=== PATIENT | female | born 1990 | race Caucasian/White ===

== ENCOUNTER 2022-01-26 08:31 | Outpatient (CLI) | payer OTHER, SELFPAY ==
[2022-01-26 14:57] LABS: HCG Quantitative* 252.78 mIU/mL
== END 2022-01-26 08:32 | disposition home or self-care (01) ==
PROVIDERS: PCP Obstetrics & Gynecology; Visit Provider Obstetrics & Gynecology
DX: Z32.01 Encounter for pregnancy test, result positive (principal)
CPT/HCPCS: 36415; 84702

== ENCOUNTER 2022-02-23 08:00 | Outpatient (CLI) | payer OTHER, SELFPAY ==
--- NOTE | 2022-02-23 08:15 | CRLHL7_ITS ---
For Patients: As a result of the Cures Act, medical imaging exams and procedure reports are released immediately into your electronic medical record. You may view this report before your referring provider. If you have questions, please contact your health care provider. INDICATION: Dating and viability. TECHNIQUE: Ultrasound OB pelvis transabdominal and transvaginal. Real-time park-scale imaging of the pelvis was performed. COMPARISON: None. FINDINGS: There is a single intrauterine gestation. The embryo demonstrates a regular cardiac rate measuring 166 beats per minute. The embryo`s crown rump length measurement of 1.87 cm corresponds to a gestational age of 8 weeks 3 days with a sonographic due date of 10/02/2022. There is a normal appearing yolk sac. There are no gross abnormalities noted within the embryo at this early state of development. The placenta has not yet developed. There is no sign of perigestational hemorrhage. The ovaries are of normal size. There are no suspicious fluid collections noted in the cul-de-sac. IMPRESSION: Single viable intrauterine with estimated gestational age of 8 weeks 3 days. Estimated due date 10/02/2022. No abnormalities seen. Dictated by Alan Pierson MD @ 02/23/2022 8:48:01 AM (Electronically Signed)
== END 2022-02-23 08:01 | disposition home or self-care (01) ==
LOC: US 08:00
PROVIDERS: PCP Obstetrics & Gynecology; Visit Provider Registered Nurse
DX: Z34.91 Encounter for supervision of normal pregnancy, unspecified, first trimester (principal); Z3A.08 8 weeks gestation of pregnancy
CPT/HCPCS: 76817

== ENCOUNTER 2022-02-23 09:19 | Outpatient (CLI) | payer OTHER, SELFPAY ==
[2022-02-23 13:08] LABS: Hepatitis B Surface Antigen* Negative (Negative)
[2022-02-23 13:19] LABS: HIV 1/2/P24 Combo Screen* Negative (Negative)
[2022-02-23 13:50] LABS: Chlamydia DNA Amplified* NOT DETECTED (No Detected); GC DNA Amplified* NOT DETECTED (No Detected)
[2022-02-23 14:23] LABS: Hepatitis C Virus Antibody* Negative (Negative)
[2022-02-24 18:30] LABS: Rubella Antibody IgG 13.5 IU/mL
[2022-02-24 19:18] LABS: Rapid Plasma Reagin (RPR) Non Reactive (Non Reactive)
== END 2022-02-23 09:20 | disposition home or self-care (01) ==
PROVIDERS: PCP Obstetrics & Gynecology; Visit Provider Registered Nurse
DX: Z34.91 Encounter for supervision of normal pregnancy, unspecified, first trimester (principal); Z86.39 Personal history of other endocrine, nutritional and metabolic disease
CPT/HCPCS: 84443; 86592; 86703; 86762; 86803; 86850; 86900; 86901; 87086; 87340; 87491; 87591

== ENCOUNTER 2022-03-21 08:26 | Outpatient (CLI) | payer OTHER, SELFPAY ==
--- NOTE | 2022-03-21 08:45 | CRLHL7_ITS ---
For Patients: As a result of the Century Cures Act, medical imaging exams and procedure reports are released immediately into your electronic medical record. You may view this report before your referring provider. If you have questions, please contact your health care provider. CLINICAL HISTORY: First trimester screening. TECHNIQUE: Real time park scale imaging of the fetus was performed using a transabdominal approach. FINDINGS: Sonographic imaging demonstrates a single living intrauterine gestation. The fetus demonstrates a regular cardiac rate measuring 163 beats per minute. The crown rump length measurement of 5.7 cm corresponds to a gestation of 12 weeks 2 days which is concordant with the earlier dating ultrasound. A nuchal translucency measurement of 1.46 mm was obtained for screening purposes. IMPRESSION: Nuchal translucency measurement obtained for first trimester screen. Dictated by Herbert Renteria MD @ 03/21/2022 10:42:37 AM (Electronically Signed)
== END 2022-03-21 08:27 | disposition home or self-care (01) ==
LOC: US 08:27
PROVIDERS: PCP Obstetrics & Gynecology; Visit Provider Registered Nurse
DX: Z34.91 Encounter for supervision of normal pregnancy, unspecified, first trimester (principal); Z3A.12 12 weeks gestation of pregnancy
CPT/HCPCS: 36415; 76801; 76813; 84163; 84702

== ENCOUNTER 2022-05-19 13:45 | Outpatient (CLI) | payer OTHER, SELFPAY ==
--- NOTE | 2022-05-19 14:00 | CRLHL7_ITS ---
For Patients: As a result of the Century Cures Act, medical imaging exams and procedure reports are released immediately into your electronic medical record. You may view this report before your referring provider. If you have questions, please contact your health care provider. INDICATION: Evaluate anatomy. COMPARISON: 03/21/2022 TECHNIQUE: Real time park scale imaging of the fetus was performed as well as color Doppler analysis of the umbilical vessels. FINDINGS: Sonographic imaging demonstrates a single living intrauterine gestation. Fetus demonstrates a regular cardiac rate of 149 beats per minute. Fetus has a vertex position. The placenta lies posteriorly without evidence of placenta previa. The edge of the placenta is located 5.2 cm from the internal cervical os. Amniotic fluid volume appears normal. Single deepest vertical pocket: 3.7 cm. The cervix is closed and measures 4.1 cm in length. The composite ultrasound gestational age is calculated at 20 weeks 2 days with an estimated sonographic due date of 10/04/2022. The estimated weight is 345 grams which lies at the 31st %. The following biometric measurements were obtained: Biparietal diameter: 4.5 cm/19 weeks 5 days 18th% Head circumference: 18.0 cm/20 weeks 3 days 36th% Abdominal circumference: 15.3 cm/20 weeks 3 days 41st% Femur length: 3.2 cm/20 weeks 1 day 26th% The HC/AC ratio measures: 1.18 range (1.07-1.25) On anatomic survey, there is a normal appearance of the cerebral ventricles, cavum septi pellucidi, cisterna magna and cerebellum. The nose, lips, and facial profile appear normal. The cervical, thoracic and lumbar spine are well visualized and appear normal. There is a normal four-chamber heart view and the left and right ventricular outflow tracts appear normal. The diaphragm and stomach appear normal. The kidneys and bladder also appear normal. There is a normal three-vessel cord and cord insertion site. The four extremities appear normal. IMPRESSION: Normal OB ultrasound exam with concordance of clinical and sonographic dating. No intrinsic abnormalities noted on anatomic survey. Dictated by Herbert Renteria MD @ 05/20/2022 10:23:13 AM (Electronically Signed)
== END 2022-05-19 13:46 | disposition home or self-care (01) ==
LOC: US 13:46
PROVIDERS: PCP Obstetrics & Gynecology; Visit Provider Physician Assistant
DX: Z34.92 Encounter for supervision of normal pregnancy, unspecified, second trimester (principal); Z3A.20 20 weeks gestation of pregnancy
CPT/HCPCS: 76805

== ENCOUNTER 2022-07-11 08:14 | Outpatient (CLI) | payer OTHER, SELFPAY ==
--- OUTSIDE RECORDS SUMMARY | 2022-07-11 08:23 | XMS_ITS | Clinical Summary ---
:1990 Author Organization [facility] [place] [address] Care Team Providers Name Role Phone Pcp, No Primary Care Provider Unavailable Allergies Not on File Medications No known medications Active Problems No known active problems Social History Tobacco Use Types Packs/Day Years Used Date Smoking Tobacco: Never Assessed Sex Assigned at Date Recorded Not on file Last Filed Vital Signs Vital Sign Reading Time Taken Comments Blood Pressure 122/86 11/04/2017 10:14 AM CDT Pulse 86 11/04/2017 10:14 AM CDT Temperature 36.7 ??C (98.1 ??F) 11/04/2017 10:14 AM CDT Respiratory Rate 16 11/04/2017 10:14 AM CDT Oxygen Saturation 100% 11/04/2017 10:14 AM CDT Inhaled Oxygen Concentration - - Weight - - Height - - Body Mass Index - - Plan of Treatment Health Maintenance Due Date Last Done Comments COVID-19 vaccine series (#1) 1989 Tdap 2000 Depression screening for age 12+ 2001 HIV for age 15-65 2004 BMI (ht and wt on same day) for 2007 age 18+ Hepatitis C screening for age 1005/09/2007 18-79 Tetanus booster 2009 Influenza for age 9-49 03/31/2022 Pap test for age 21-65 03/24/2023 03/24/2020, 03/24/2020, 06/15/2017, Additional history exists Results Not on filefrom Last 3 Months Insurance Payer Benefit Plan / Subscriber ID Effective Dates Phone Addre ss Type Group PREFERRED ONE PREFERRED ONE [id number] 2016-Present [address] [place] [address] Care Teams Manager Of Patient Relationship Specialty Start Date End Date Pcp, No PCP - General 11/04/17 .
[2022-07-11 10:57] LABS: Free T4 Free Thyroxine* 0.86 ng/dL (0.70-1.85)
[2022-07-13 05:59] LABS: Rapid Plasma Reagin (RPR) Non Reactive (Non Reactive)
== END 2022-07-11 08:15 | disposition home or self-care (01) ==
LOC: NFLDREF 08:15
PROVIDERS: Registered Nurse; PCP Obstetrics & Gynecology; Visit Provider Obstetrics & Gynecology
DX: Z34.93 Encounter for supervision of normal pregnancy, unspecified, third trimester (principal); E03.9 Hypothyroidism, unspecified; Z3A.28 28 weeks gestation of pregnancy
CPT/HCPCS: 84439; 84443; 86592

== ENCOUNTER 2022-09-05 08:15 | Outpatient (CLI) | payer OTHER, SELFPAY ==
[2022-09-06 13:05] LABS: Strep B DNA Probe NEGATIVE (Negative)
[2022-09-06 13:11] LABS: Strep B Pen/Amox Allergy No
== END 2022-09-05 08:16 | disposition home or self-care (01) ==
PROVIDERS: Visit Provider Physician Assistant
DX: Z34.93 Encounter for supervision of normal pregnancy, unspecified, third trimester (principal); Z3A.36 36 weeks gestation of pregnancy
CPT/HCPCS: 87081; 87653

== ENCOUNTER 2022-09-16 08:00 | Outpatient (RCR) | payer OTHER, SELFPAY ==
--- NOTE | 2022-09-06 15:50 | ONC.NURNOTE ---
Dx: Iron deficiency Anemia
--- NOTE | 2022-09-07 09:54 | URNOTE ---
Request received for authorization for Ferric Carboxymaltose (Injectafer) ([id number]). Prior authorization is not needed per [facility], Rep Lore Ref#[id number].
[2022-09-09] MEDS: FERRIC CARBOXYMALTOSE 750 MG in 0.9 % SODIUM CHLORIDE 250 ml 250 ML 1060 MG IVPB (08:17)
[2022-09-09 08:21] VITALS: BP 124/81; PULSE 94; RESP 16; TEMP 36.6; O2SAT 99
[2022-09-09 08:40] VITALS: BP 116/77; PULSE 90
[2022-09-09 09:12] VITALS: BP 122/80; PULSE 87
[2022-09-16 07:56] VITALS: BP 129/82; PULSE 92; RESP 16; TEMP 36.1; O2SAT 99
[2022-09-16] MEDS: FERRIC CARBOXYMALTOSE 750 MG in 0.9 % SODIUM CHLORIDE 250 ml 250 ML 1060 MG IVPB (08:17)
== END 2023-03-08 23:59 | disposition home or self-care (01) ==
LOC: CCIC 08:00
PROVIDERS: Visit Provider Clinical Nurse Specialist
DX: D50.9 Iron deficiency anemia, unspecified (principal)
CPT/HCPCS: 96365; 96374; J1439; J7050

== ENCOUNTER 2022-09-26 05:24 | Inpatient (IN) | payer OTHER, SELFPAY ==
[2022-09-26] VITALS (25 sets, daily range): BP systolic 102–119; BP diastolic 60–83; PULSE 63–99; RESP 16–18; TEMP 36.4–36.8; O2SAT 95–99; BMI 24.7
[2022-09-26] MEDS: LACTATED RINGERS 1000 ML 1,000 ML 125 ML IV ×2 (06:05→08:30)
[2022-09-26 06:25] LABS: Basophils Absolute Auto 0.03 K/uL (0.00-0.30); Basophils Percent Auto 0.5 % (0.0-3.0); Eosinophils Absolute Auto 0.13 K/uL (0.00-0.50); Hematocrit 32.1 % (33.0-51.0); Hemoglobin* 10.7 gm/dL (12.0-16.0); Immature Granulocytes Abs Auto 0.02 K/uL (0.00-0.30); Immature Granulocytes Pct Auto 0.3 %; Lymphocytes Absolute Auto 1.57 K/uL (0.90-2.90); Lymphocytes Percent Auto 24.2 % (20-44); Mean Corpuscular HGB Conc 33 gm/dL (32-36); Mean Corpuscular Hemoglobin 32 pg (26-34); Mean Corpuscular Volume 95 fL (80-100); Monocytes Percent Auto 9.6 % (0.0-11.0); Neutrophils Absolute Auto 4.12 K/uL (1.7-7.0); Neutrophils Percent Auto 63.4 % (42.0-72.0); Platelet Count* 163 K/uL (140-440); RDW Coefficient of Variation % 16.2 % (11.5-15.5); Red Blood Count 3.37 m/uL (4.00-5.20); White Blood Count* 6.49 K/uL (4.50-11.00)
[2022-09-26 06:26] LABS: Slide Review Reflex No
[2022-09-26 07:04] LABS: SARS PCR* Negative SARS-CoV-2 (Negative)
--- NOTE | 2022-09-26 07:14 | W.ANESCHARGE ---
Anesthesia Charges Start Date/Time Anesthesia Start Date: 09/26/22 Anesthesia Start Time: 07:13 Stop Date/Time Anesthesia Stop Date: 09/26/22 Anesthesia Stop Time: 08:36
[2022-09-26] MEDS: CEFAZOLIN 2 GM in 0.9 % SODIUM CHLORIDE Mini-bag 100 ML IVPB (07:30)
--- NOTE | 2022-09-26 07:33 | P.LDBA_ITS ---
Subjective History of Present Illness Narrative: Patient is being admitted to Labor and Delivery for repeat delivery. She is a 32 year old at 39 1/7 weeks gestation. Scheduled for 09/26/[address] Vicente = 39 1/7 weeks H&P 09/13/22 Specific Issues/Plans G2, P1001 : Reji. Son: Rahul Baby: Girl! 1. History of due to arrest of descent and somewhat traumatic (Jozef) Desires repeat 2. History hemorrhage and blood transfusion ? 3. History of hypothyroidism during 1st .? Initiated levothyroxine during infertility evaluation prior to 1st .? Using no levothyroxine this . * TSH with reflex:? 1.25 (normal) * Repeat TSH 07/11/22:? 2.25 4.? Anemia, with Hb 9.8 at 36 weeks.? Intolerant of oral iron.? Injectafer X 2 doses.? Flu: Declined on 07/26/22 TDap: Received 07/26/22 COVID:? Completed in boosted x1 Her full history and physical was dictated by Dr. Vicente on 09/13/22. Please see this for details. OB - Problem Based A/P Additional Plan (1) Anemia affecting : Problem details: Intolerant of oral iron. IV iron in 37th week gestation. Status: Acute (2) Previous delivery affecting : Status: Acute Plan: Repeat delivery today. OB Exam Physical Exam Vital signs: Temp Pulse Resp BP Pulse Ox 98.2 F 94 16 119/83 99 09/26/22 06:20 09/26/22 06:20 09/26/22 06:20 09/26/22 06:20 09/26/22 06:12
--- NOTE | 2022-09-26 07:36 | W.ANESCHARGE ---
Anesthesia Charges Start Date/Time Anesthesia Start Date: 09/26/22 Anesthesia Start Time: 07:13 Stop Date/Time Anesthesia Stop Date: 09/26/22 Anesthesia Stop Time: 08:36
[2022-09-26] MEDS: KETOROLAC 15 MG/ML inj IVP (08:13)
--- NOTE | 2022-09-26 08:24 | P.OBPRC_ITS ---
Procedure Pre-op/Post-op diagnoses: Pre-Op/Post-Op Diagnoses Operation Date: 09/26/22 07:15 <No data on this case meets the specified criteria> Procedure Done: Global Procedure Details: Procedures Operation Date: 09/26/22 07:15 Actual Procedure Side Surgeon p Repeat Section Jada Vicente MD Narrative: PREOPERATIVE DIAGNOSIS: 39 weeks, 1 day gestation Previous delivery, desires repeat POSTOPERATIVE DIAGNOSIS: 39 weeks, 1 day gestation Previous delivery, desires repeat PROCEDURE: Repeat low-transverse section SURGEON: Jada Vicente MD FAMILY LITERACY COORDINATOR: JOSE CARLOS Bhatti ANESTHESIA: Spinal IV FLUIDS: 1500 mL crystalloid QBL: 118 mL FINDINGS: 1. Female , cephalic OA presentation, Apgars of 8 and 9 2. Normal appearance to uterus, bilateral tubes and ovaries. COMPLICATIONS: None PROCEDURE IN DETAIL: Patient was taken to the operating room with IV running. She received cefazolin in preoperative prophylaxis. Spinal anesthesia had previously been administered. Varela catheter was inserted. She was prepped and draped in the usual sterile fashion. Anesthesia was tested and found to be adequate. A low-transverse skin incision was made with a scalpel and carried through to the underlying layer of fascia with the scalpel. The subcutaneous fat was dissected off the underlying fascia with Bovie. The fascia was nicked in the midline with a scalpel, and this incision was extended laterally with scissors. The rectus muscles were in the midline. The superior aspect of the fascial incision was bluntly dissected off the underlying rectus muscles. Peritoneum was identified and entered bluntly. Bovie was used to widen this ope von laterally. Teddy O retractor was inserted and tightened down, providing excellent visualization of the lower uterine segment. The bladder reflection was found to be well below the planned site for hysterotomy. Low-transverse uterine incision was made with a scalpel. Incision was widened bluntly. The 's head was grasped through the hysterotomy and delivered with the help of fundal pressure. The remainder of the body delivered without incident. Cord was clamped and cut after 30 seconds. was handed off to attending nurses. The placenta was delivered with gentle traction on the cord. The uterus was cleaned of all clots and debris with the dry lap pad. The hysterotomy was reapproximated with 0 Vicryl in a running, locked fashion. A few etbvhl-bm-arwid sutures were used in addition to this to obtain hemostasis of the hysterotomy. The adnexa were examined and noted to be normal in appearance. The cul-de-sac and gutters were cleansed with dampened laparotomy sponge, removing any further clots and debris. The Teddy O retractor was removed. The hysterotomy was reexamined and found to be hemostatic. The peritoneum was reapproximated with 2 0 Vicryl in a running fashion. The rectus muscles were examined and found to be hemostatic. The fascia was reapproximated with 0 Vicryl in a running fashion. Subcutaneous fat was irrigated and Bovie used on oozing vessels. The subcutaneous fat was reapproximated with 2 0 plain gut suture in an interrupted fashion. [] The skin was closed with a subcuticular stitch of 4-0 Monocryl. Surgical glue was applied above this. Patient tolerated procedure well was taken to recovery area in stable condition.
--- NOTE | 2022-09-26 08:48 | P.NB_ITS ---
Nerve Block Nerve Block Time Seen by Provider: 08:26 Date Seen: 09/26/22 Type of block requested by surgeon for post-operative analgesia: TAP Side: bilateral Time out performed: Yes Verification of patient name: Yes Verification of date of : Yes Site marking: site marked Name of person performing procedure: Hemant Continuous monitoring Was continuous monitoring of O2 sat, B/P, classroom monitor, recorded every 15 minutes?: Yes Procedure Checklist: sterile prep, needles and gloves Ultrasound guided. Images saved: Yes Medications given in 5ml increments after negative aspiration: Marcaine %: 0.25 mL: 30 Needle gauge: 20 and Exparel mL: 10 Patient tolerated procedure well: Yes Additional comments: Needle noted adjacent to nerve Block Charges Block Charge (with Pro Fee): TAP Bilateral Use of Ultrasound Machine for Block: Yes- US Guidance/pain block
[2022-09-26] MEDS: KETOROLAC 30 MG/ML inj IVP ×2 (14:00→20:39)
[2022-09-26] MEDS: ACETAMINOPHEN 500 MG TABLET 1000 MG PO (18:33)
[2022-09-27] VITALS (14 sets, daily range): BP systolic 107–115; BP diastolic 70–77; PULSE 75–98; RESP 16–18; TEMP 36.3–36.6; O2SAT 96–98
[2022-09-27] MEDS: ACETAMINOPHEN 500 MG TABLET 1000 MG PO ×3 (00:22→17:39)
[2022-09-27] MEDS: KETOROLAC 30 MG/ML inj IVP ×3 (02:37→14:06)
[2022-09-27] MEDS: SODIUM CHLORIDE 0.9 % (FLUSH) 10 ML SYRINGE IVF (02:38)
[2022-09-27 05:50] LABS: Hemoglobin* 9.3 gm/dL (12.0-16.0)
[2022-09-27] MEDS: DOCUSATE SODIUM 100 MG CAPSULE PO (07:39)
--- NOTE | 2022-09-27 07:50 | P.OBPN_ITS ---
OB - PN: A/P Assessment and Plan (1) care and examination immediately after delivery: Status: Acute (2) Lactating mother: Status: Acute (3) Anemia affecting : Problem details: Intolerant of oral iron. Status: Acute (4) Previous delivery affecting : Status: Acute Plan day: 1 Plan: routine postop care Comments: May see if desired. Anemia. Recommended iron supplementation, does not tolerate oral. Discussed with Dr. Rosado who agrees with iron rich foods. Iron infusion could be considered only if she is symptomatic. Anticipate discharge tomorrow, . OB - PN: Subj Subjective Date Seen: 09/27/22 Patient comments: no complaints and pain well controlled status: [place] feeding status: exclusively Narrative: Ambreen is a 32yo G2 now P2 at 39.1 weeks gestation s/p section delivery The patient feels well.? The pain is well controlled with current medications.? She has no new complaints.? Urinary output is adequate and she is voiding without difficulty.? Has a good appetite, is tolerating a general diet, is passing flatus, and has not yet had a bowel movement.? Has small amount of rubra lochia.? She is ambulating well. She is and reports it is going well.?She does desire to continue to work on her skills and see today. OB - PN: Obj Exam Physical Exam: Vital signs: Temp Pulse Resp BP Pulse Ox O2 Del Method 97.5 F L 75 16 110/70 97 09/27/22 07:40 09/27/22 07:40 09/27/22 07:40 09/27/22 07:40 09/27/22 07:40 09/27/22 07:40 Narrative: GENERAL APPEARANCE:? normal affect, alert, no distress? MOOD:? appropriate? CHEST:? clear to auscultation? HEART:? regular rate and rhythm? ABDOMEN:? soft, non-tender the uterine fundus is At Umbilicus, Midline and is appropriate for the stage of recovery.?? EXTREMITIES:? normal and trace edema INCISION: Dressing intact, clean and dry. Dressing due to be removed today.? Urinary Catheter Management: Urethral: Cath placed during this visit: yes, but has since been removed by the nurse Urethral indwelling: No Reason for continuing: decision to DC catheter Insertion date: 09/26/22 Insertion time: 07:00 Removal date: 09/27/22 Removal time: 00:30 OB - PN: Obj Data Labs Labs: Laboratory Results - last 24 hr 09/27/22 05:35 Hgb 9.3 L
[2022-09-27] MEDS: IBUPROFEN 600 MG TABLET PO (19:17)
[2022-09-28] MEDS: ACETAMINOPHEN 500 MG TABLET 1000 MG PO ×3 (00:13→12:39)
[2022-09-28 00:16] VITALS: BP 109/73; PULSE 82; RESP 16; TEMP 36.4; O2SAT 98
[2022-09-28] MEDS: IBUPROFEN 600 MG TABLET PO ×2 (03:19→10:27)
[2022-09-28 08:11] VITALS: BP 123/85; PULSE 89; RESP 16; TEMP 36.5; O2SAT 99
[2022-09-28] MEDS: DOCUSATE SODIUM 100 MG CAPSULE PO (08:43)
--- NOTE | 2022-09-28 08:54 | PM.OBDSCS1 ---
DS: Providers Provider Date Seen: 09/28/22 Date of admission: 09/26/22 05:24 Primary care physician: Not a Local Provider Admitting Clinician: Jada Vicente MD Attending Physician on discharge: HELIO Melissa with supervision by Li Hollis CNM Date of Discharge: 09/28/22 DS: Diagnosis Discharge Diagnosis (1) Lactating mother: Status: Acute (2) care and examination immediately after delivery: Status: Acute Exam Narrative: Exam Narrative: GENERAL APPEARANCE:? normal affect, alert, no distress? MOOD:? appropriate? CHEST:? clear to auscultation? HEART:? regular rate and rhythm? ABDOMEN:? soft, non-tender the uterine fundus is 1cm below Umbilicus, Midline and is appropriate for the stage of recovery.? INCISION: Low abdominal incision healing well with glue to site. ? EXTREMITIES:? normal and no edema? Const: Vital Signs, click to edit/add: Vital Signs - 24 hr 09/27/22 11:26 09/27/22 15:56 09/27/22 19:19 Temperature 97.3 F L 97.5 F L 97.4 F L Pulse Rate [Pulse Oximeter] 87 98 93 Respiratory Rate 16 16 16 Blood Pressure [Ri ght Arm] 110/74 108/75 107/72 Pulse Oximetry 98 96 98 Oxygen Delivery Me thod Room Air Room Air Room Air 09/28/22 00:16 09/28/22 08:11 Temperature 97.6 F 97.7 F Pulse Rate [Pulse Oximeter] 82 89 Respiratory Rate 16 16 Blood Pressure [Ri ght Arm] 109/73 123/85 Pulse Oximetry 98 99 Oxygen Delivery Me thod Room Air Room Air Documenting provider has reviewed patient's vital signs: yes OB - DS: Summary Hospital Course Hospital Course: Ambreen is a 32yo G2 now P2 at 39.1 weeks gestation s/p uncomplicated repeat section delivery on09/26/22. The patient feels well.? The pain is well controlled with current medications.? She has no new complaints.? Urinary output is adequate and she is voiding without difficulty.? Has a good appetite, is tolerating a general diet, is passing flatus, and has not yet had a bowel movement.? Has small amount of rubra lochia.? She is ambulating well. She is and reports it is going well.?She does desire to continue to work on her skills and see today. ? ? Peripartum Data Procedures: Procedures Operation Date: 09/26/22 07:15 Actual Procedure Side Surgeon p Repeat Section Jada Vicente MD complications: none [place] Infant Gender: Female Infant Discharge Plan: Home Status at Discharge Functional status at discharge: independent ambulation Overall status at discharge: patient is progressing back to baseline Time Spent with Patient Time attestation: Total time spent providing and/or coordinating discharge services: Time spent: Less than 30 minutes Discharge Plan Discharge Disposition: Home, Self-Care Date of Admission: 09/26/22 05:24 Attending Provider on Discharge: Li Hollis Primary Care Provider: Provider,Not a Local Condition: Stable Anticipated Discharge Date/Time: 09/28/22 12:00 Discharge Medications: New acetaminophen 500 mg Tablet 1,000 mg PO Q6H PRN (Reason: Pain) Qty: 0 0RF docusate sodium 100 mg Capsule 100 mg PO DAILY Qty: 90 0RF ibuprofen 600 mg Tablet 600 mg PO Q6H PRN (Reason: Pain) Qty: 60 0RF oxycodone 5 mg Tablet 5 - 10 mg PO Q4H PRN (Reason: Pain) Qty: 20 0RF Continued prenat.vits,ole,uoo-xaec-sbnuj Tablet 1 tab PO QDAY Discontinued acetaminophen [Tylenol Extra Strength] 500 mg tablet 1,000 mg PO Q6H PRN Discharge Orders: Discharge Order (Routine); Ordered 09/28/22 Ordered By: Li Hollis Patient Education: OB /Breast Feeding Additional Instructions: Discharge instructions were reviewed with the patient including signs and symptoms of infection and home going medications Lifting Restrictions: 20 pounds for 6 weeks No not submerge incision under water X 2 weeks? Nothing vaginally for 6 weeks: no tampons or intercourse Do not drive while taking narcotic pain medication(s) Off Work or School for 6 weeks 2-week visit: incision check, discuss infant feeding concerns, review control options and screen for anxiety/depression. 6-week visit for an annual exam. consultation services are available to all mothers and babies for the first year after delivery.? To make an appointment, please call [phone]. Activity Level: Activity as Tolerated Discharge Diet: Regular Follow Up Appointments: [facility] [Provider Group] Provider,Not a Local [Primary Care Provider] - Forms: [employer] Info Instructions
[2022-09-28 15:33] VITALS: BP 118/80; PULSE 98; RESP 16; O2SAT 100
== END 2022-09-28 18:07 | disposition home or self-care (01) | DRG 787 ==
PROVIDERS: Admitting Provider Obstetrics & Gynecology; Visit Provider Obstetrics & Gynecology
PROC: 10D00Z1 Extraction of Products of Conception, Low, Open Approach (ICD-10-PCS; CPT 59514; principal; 2022-09-26 07:15)
DX: O34.211 Maternal care for low transverse scar from previous cesarean delivery (principal); D62 Acute posthemorrhagic anemia; O99.02 Anemia complicating childbirth; Z3A.39 39 weeks gestation of pregnancy; Z37.0 Single live birth
CPT/HCPCS: 01961; 36415; 76942; 85018; 85025; 86850; 86870; 86880; 86900; 86901; 86905; 86906; 87635; A9270; C9290; J0690; J1885; J2274; J2370; J2405; J2590; J3010; J3490; J7120

== ENCOUNTER 2022-11-07 10:54 | Outpatient (CLI) | payer OTHER, SELFPAY | END 2022-11-07 10:55 | disposition home or self-care (01) | LOC: NFLDREF 21:17 | PROVIDERS: Visit Provider Obstetrics & Gynecology | DX: E03.9 Hypothyroidism, unspecified (principal) | CPT/HCPCS: 84443 ==

== ENCOUNTER 2024-03-21 10:50 | Outpatient (CLI) | payer OTHER, SELFPAY ==
--- OUTSIDE RECORDS SUMMARY | 2024-03-21 10:52 | XMS_ITS | Referral Summary ---
Author Organization [facility] Address [address] [place] [id number] Care Team Providers Care Senior Pharmacy Technician Name Role Phone Unavailable Primary Care Provider Unavailabl e Source Comments Patient records contain information from all sites at [facility]. For routine questions regarding patient records, call [phone] during business hours, M-F 8:00 AM - 5:00 PM Central Time. Record requests for emergency care only can be directed to [phone] at any time.[facility] Allergies No known active allergies Medications No known medications Active Problems No known active problems Social History Tobacco Use Types Packs/Day Years Used Date Smoking Tobacco: Never Smokeless Tobacco: Never Tobacco Cessation:Counseling Given: No Nutrition Answer Date Recorded Nutrition: EVOO Fat Source Unknown 11/22 Nutrition: Servings of Fruits/Vegetables per Day Not on file 11/22/2022 Dental Answer Date Recorded Dental: Regular Dentist Unknown 11/23/19 Education Answer Date Recorded What is the highest level of school you have completed or the highest degree you have received? Master's degree (e.g., MA, MS, Jonh, MEd, [employer], [employer]) 11/25/2022 Sex and Gender Information Value Date Recorded Sex Assigned at Not on file Gender Identity Not on file Sexual Orientation Not on file Last Filed Vital Signs Vital Sign Reading Time Taken Comments Blood Pressure 130/80 12/14/2022 12:45 PM CDT Pulse 66 12/14/2022 12:45 PM CDT Temperature 36.6 ??C (97.9 ??F) 12/14/2022 12:45 PM C DT Respiratory Rate - - Oxygen Saturation 99% 12/14/2022 12:45 PM CDT Inhaled Oxygen Concentration - - Weight 66.4 kg (146 lb 6.2 oz) 12/14/2022 12:45 PM CDT Height - - Body Mass Index - - Plan of Treatment Not on file
--- OUTSIDE RECORDS SUMMARY | 2024-03-21 10:52 | XMS_ITS ---
Author Organization [facility] Address [address] [place] [address] Care Team Providers Care Operations Research Scientist Name Role Phone Unavailable Unavailable Unavailable Surgery Details Not on file Complications Check Surgery Details section. Procedure Estimated Blood Loss Check Surgery Details section. Procedure Findings Check Surgery Details section. Procedure Specimens Taken Check Surgery Details section.
--- OUTSIDE RECORDS SUMMARY | 2024-03-21 10:52 | XMS_ITS | Clinical Summary ---
Author Organization [employer] [facility] s [facility] Address [place], [place] [address] Care Team Providers Care Master Cosmetologist Name Role Phone Pcp, No Primary Care Provider Unavailabl e Medications No known medications Active Problems No known active problems Social History Tobacco Use Types Packs/Day Years Used Date Smoking Tobacco: Never Assessed Sex and Gender Information Value Date Recorded Sex Assigned at Not on file Gender Identity Not on file Sexual Orientation Not on file Last Filed Vital Signs Vital Sign Reading Time Taken Comments Blood Pressure 122/86 11/04/2017 10:14 AM CDT Pulse 86 11/04/2017 10:14 AM CDT Temperature 36.7 ??C (98.1 ??F) 11/04/2017 10:14 AM C DT Respiratory Rate 16 11/04/2017 10:14 AM CDT Oxygen Saturation 100% 11/04/2017 10:14 AM CDT Inhaled Oxygen Concentration - - Weight - - Height - - Body Mass Index - - Plan of Treatment Health Maintenance Due Date Last Done Comments Tdap 2000 Depression screening for age 12+ 2001 HIV for age 15-65 2004 BMI (ht and wt on same day) for age 18+ 2007 Hepatitis C screening for age 18-79 2007 Tetanus booster 2009 Pap test for age 21-65 03/24/2023 0, 03/24/2020, 06/15/2017, Additional history exists COVID-19 vaccine series (2022- season) 2023 Influenza for age 9-49 03/31/2024 Pneumococcal series for age 6-64 Aged Out No longer eligible based on patient's age to complete this topic Procedures Procedure Name Priority Date/Time Associated Diagnosis Comments CLINICAL DATA ASSISTANT THIN PREP PAP SCREEN IMAGED Routine 03/24/2020 11:15 AM CDT from Last 3 Months or Most Recently Relevant to Health Maintenance Results * CLINICAL DATA ASSISTANT THIN PREP PAP SCREEN IMAGED (03/24/2020 11:15 AM CDT) Case Report Gynecologic Cytology Report ? Case: [id number] ? Authorizing Provider: ??Ayana Pozo ??Collected: ? 03/24/2020 1115 ? M, MD ? Ordering Location: ? L C[facility]TR[facility] ?Received: ?03/25/2020 1053 ? First Screen: ?Blanche Castro ? Specimen: ?CLINICAL DATA ASSISTANT ThinPrep Vial Screening, Cervical/Vaginal ? 04/02/2020 1:28 PM CDT [facility] INTERPRETATION/ RESULT NEGATIVE FOR INTRAEPITHELIAL LESION OR MALIGNANCY (NIL) (none) 04/02/2020 1:28 PM CDT [facility] IMEN ADEQUACY Satisfactory for evaluation Endocervical component present 04/02/2020 1:28 PM CDT [facility] HPV REQUEST HPV and PAP 04/02/2020 1:28 PM CDT [facility] Last Pap Date 06/17/2017 04/02/2020 1:[address] [facility] Last Pap Result NIL 0 1:28 PM CDT [facility] Menstrual Status 04/02/2020 1:[address] [facility] Additional Information 04/02/2020 1:28 PM CDT [facility] Comment: Interpreted at [facility] - [address], [place] [address] Automated Review Successful 04/02/2020 1:[address] [facility] Comment:Specimen processed s uccessfully by automated industrial designer device, ThinPrep Imaging System, [employer] ANCILLARY TESTING CLINICAL DATA ASSISTANT HPV Ordered, Please see separate report 04/02/2020 1:[address] [facility] Note The pap test is a screening technique, not a diagnostic procedure. It is used primarily to screen for squamous cancers and precursor lesions. Published studies have shown that it is subject to both false negative and false positive results. The pap test should not be used as the sole means to diagnose or exclude pre-malignant and malignant lesions. 04/02/2020 1:28 PM CDT [facility] Other (Cervical/Vagina l) 03/24/2020 11:15 AM CDT 03/25/2020 10:53 AM CDT Ayana Pozo MD PATHOLOGY/ CYTOLOGY [facility] [address] [place] [address], [place] from Last 3 Months or Most Recently Relevant to Health Maintenance Care Teams Master Cosmetologist Relationship Specialty Start Date End Date Pcp, No . PCP - General 11/04/17
--- OUTSIDE RECORDS SUMMARY | 2024-03-21 10:52 | XMS_ITS | Clinical Summary ---
Author Organization [facility] Address [address] [place] [id number] Care Team Providers Care Rail Loader Name Role Phone Unavailable Primary Care Provider Unavailabl e Source Comments Patient records contain information from all sites at [facility]. For routine questions regarding patient records, call [phone] during business hours, M-F 8:00 AM - 5:00 PM Central Time. Record requests for emergency care only can be directed to [phone] at any time.[facility] Allergies No known active allergies Medications No known medications Active Problems No known active problems Family History Medical History Relation Name Comments Hypertension Maternal Grandfather Hypertension Maternal Grandmother ectopic Mother Hypertension Paternal Grandfather Diabetes Paternal Grandmother Hypertension Paternal Grandmother Relation Name Status Comments Maternal Grandfather Maternal Grandmother Mother Paternal Grandfather Paternal Grandmother Social History Tobacco Use Types Packs/Day Years [...] Master's degree (e.g., MA, MS, Jonh, MEd, [employer], [employer]) 11/25/2022 Sex and Gender Information Value [...] Health Maintenance Due Date Last Done Comments HIV Screening 1989 Hepatitis C Screening 1989 Cervical Cancer Screening 03/24/2023 03/24/2020 COVID-19 Vaccine ( season) 2023 06/19/2021, 10/23/2020, 09/25/2020 Depression Screening (Annual PHQ-2) 07/31/2023 Influenza Vaccine (#1) 2024 DTaP,Tdap,and Td Vaccines (9 - Td or Tdap) 07/26/2032 07/26/2022, 07/22/2019, 01/26/2015, Additional history exists Hepatitis B Vaccines Completed 01/17/1999, 01/16/1998, 12/15/1997 HPV Vaccines Completed 06/12/2015, 12/30, 01/20/2015, Additional history exists Pneumococcal vaccine (0-64 years) Aged Out No longer eligible based on patient's age to complete this topic
== END 2024-03-21 10:51 | disposition home or self-care (01) ==
PROVIDERS: Visit Provider Registered Nurse
DX: Z01.419 Encounter for gynecological examination (general) (routine) without abnormal findings (principal); E03.9 Hypothyroidism, unspecified; Z13.6 Encounter for screening for cardiovascular disorders; Z13.1 Encounter for screening for diabetes mellitus
CPT/HCPCS: 80061; 82947; 84443

== ENCOUNTER 2024-04-04 15:55 | Outpatient (RCR) | payer OTHER, SELFPAY | END 2024-08-02 23:59 | disposition home or self-care (01) | PROVIDERS: Visit Provider Registered Nurse | DX: R53.1 Weakness (principal); M54.9 Dorsalgia, unspecified; Z51.89 Encounter for other specified aftercare | CPT/HCPCS: 97110; 97161 ==

== ENCOUNTER 2025-03-01 08:34 | Emergency (ER) | payer OTHER, SELFPAY ==
--- OUTSIDE RECORDS SUMMARY | 2025-03-01 08:35 | XMS_ITS | Clinical Summary ---
Author Organization [facility] Address [address] [place] [address] Care Team Providers Care Metal Precision Machine Assembler Name Role Phone Pcp, No Primary Care Provider Unavailabl e Medications No known medications Active Problems No known active problems Social History Tobacco Use Types Packs/Day Years Used Date Smoking Tobacco: Never Assessed Comments Unknown Sex and Gender Information Value Date Recorded Sex Assigned at Not on file Legal Sex Female 8:40 PM CDT Gender Identity Not on file Sexual Orientation Not on file Last Filed Vital Signs Vital Sign Reading Time Taken Comments Blood Pressure 122/86 11/04/2017 10:14 AM CDT Pulse 86 11/04/2017 10:14 AM CDT Temperature 36.7 C (98.1 F) 11/04/2017 10:14 AM CDT Respiratory Rate 16 11/04/2017 10:14 AM CDT Oxygen Saturation 100% 11/04/2017 10:14 AM CDT Inhaled Oxygen Concentration - - Weight - - Height - - Body Mass Index - - Plan of Treatment Health Maintenance Due Date Last Done Comments Tetanus booster 2000 Depression screening for age 12+ 2001 HIV for age 15-65 2004 BMI (ht and wt on same day) for age 18+ 2007 Hepatitis C screening for age 18-79 2007 Hepatitis B series for 19+ (1 of 3 - 19+ 3-dose series) 2008 Pap test for age 21-65 03/24/2023 , 03/24/2020, 06/15/2017, Additional history exists COVID-19 vaccine series ( - 2023- season) 2024 Influenza Vaccine (#1) 2025 Pneumococcal series for age 6-49 Aged Out No longer eligible based on patient's age to complete this topic Procedures Procedure Name Priority Date/Time Associated Diagnosis Comments CALL BOX WIRER THIN PREP PAP SCREEN IMAGED Routine 03/24/2020 11:15 AM CDT from Last 3 Months or Most Recently Relevant to Health Maintenance Results * CALL BOX WIRER THIN PREP PAP SCREEN IMAGED (03/24/2020 11:15 AM CDT) Case Report Gynecologic Cytology Report Case: [id number] Authorizing Provider: Ayana Pozo Collected: 03/24/2020 1115 MD Kandice Ordering Location: [facility] Received: 03/25/2020 1053 First Screen: Blanche Castro Specimen: CALL BOX WIRER ThinPrep Vial Screening, Cervical/Vaginal 04/02/2020 1:28 PM CDT [facility] INTERPRETATION/ RESULT NEGATIVE FOR INTRAEPITHELIAL LESION OR MALIGNANCY (NIL) (none) 04/02/2020 1:28 PM CDT [facility] at 1328 CDT SPECIMEN ADEQUACY Satisfactory for evaluation Endocervical component present 04/02/2020 1:28 PM CDT [facility] HPV REQUEST HPV and PAP 04/02/2020 1:28 PM CDT [facility] Last Pap Date 06/17/2017 04/02/2020 1:28 PM CDT [facility] Last Pap Result NIL 0 1:28 PM CDT [facility] Menstrual Status 04/02/2020 1:28 PM CDT [facility] Additional Information 04/02/2020 1:28 PM CDT [facility] Comment: [facility] - [address], [place] [address] Automated Review Successful 04/02/2020 1:28 PM CDT [facility] Comment:Specimen processed s uccessfully by automated can dragger device, ThinPrep Imaging System, [employer] ANCILLARY TESTING CALL BOX WIRER HPV Ordered, Please see separate report 04/02/2020 1:28 PM CDT [facility] Note The pap test is a screening technique, not a diagnostic procedure. It is used primarily to screen for squamous cancers and precursor lesions. Published studies have shown that it is subject to both false negative and false positive results. The pap test should not be used as the sole means to diagnose or exclude pre-malignant and malignant lesions. 04/02/2020 1:28 PM CDT [facility] Other (Cervical/Vagina l) 03/24/2020 11:15 AM CDT 03/25/2020 10:53 AM CDT us Ayana Pozo MD PATHOLOGY/CYTOLOGY Final Result [facility] [address] [place] [address], [place] from Last 3 Months or Most Recently Relevant to Health Maintenance Care Teams Metal Precision Machine Assembler Relationship Specialty Start Date End Date Pcp, No . PCP - General 11/04/17
[2025-03-01 08:41] VITALS: BP 130/83; PULSE 95; RESP 16; TEMP 36.4; O2SAT 99; BMI 21.9
[2025-03-01 09:00] VITALS: PULSE 96; O2SAT 100
--- NOTE | 2025-03-01 09:03 | CRLHL7_ITS ---
For Patients: As a result of the Century Cures Act, medical imaging exams and procedure reports are released immediately into your electronic medical record. You may view this report before your referring provider. If you have questions, please contact your health care provider. INDICATION: Sensation of something pressing against her esophagus. COMPARISON: None. TECHNIQUE: CT of the neck with contrast. Multiplanar axial, coronal, and sagittal reformats were reconstructed. Intravenous contrast: 69 mL Isovue 370. FINDINGS: Lymph nodes: Normal. Parotid and submandibular glands: Normal. Thyroid gland: Normal. Tonsils: Normal. Airway: Minimal debris in the vallecula. Not deviated or narrowed. Normal epiglottis. Parapharyngeal spaces: Normal. Paranasal sinus: Normal. Soft tissues: Normal. No swelling. No foreign body. Arteries: Aberrant right subclavian artery arising from the distal aortic arch passing behind the esophagus and the trachea. No diverticulum of Kommerell. No atherosclerosis. Veins: No deep vein thrombosis. Lung apices: Clear. Bones: No fractures. No focal bone lesions. Normal for age. Included intracranial contents, orbits and mastoids: Normal. IMPRESSION: Aberrant right subclavian artery. No diverticulum of Kommerell. Please note that all CT scans at this facility use dose modulation, iterative reconstruction, and/or weight-based dosing when appropriate to reduce radiation dose to as low as reasonably achievable. Dictated by Li Narayanan MD @ 03/01/2025 9:28:47 AM (Electronically Signed)
[2025-03-01 09:22] LABS: Chloride* 105 mmol/L (96-114); Hematocrit 41.6 % (33.0-51.0); Hemoglobin* 13.8 gm/dL (12.0-16.0); Immature Granulocytes Abs Auto 0.01 K/uL (0.00-0.30); Immature Granulocytes Pct Auto 0.1 %; Mean Corpuscular HGB Conc 33 gm/dL (32-36); Mean Corpuscular Hemoglobin 31 pg (26-34); Mean Corpuscular Volume 92 fL (80-100); Potassium* 3.7 mmol/L (3.6-5.1); RDW Coefficient of Variation % 11.8 % (11.5-15.5); Red Blood Count 4.52 m/uL (4.00-5.20); Sodium* 138 mmol/L (135-149); White Blood Count* 9.35 K/uL (4.50-11.00)
[2025-03-01 09:25] LABS: Blood Urea Nitrogen* 10 mg/dL (5-24); Creatinine* 0.8 mg/dL (0.5-1.5); Est. Creatinine Clearance* 95.45; Estimated Glomerular Filt Rate 98 ml/min
[2025-03-01 09:26] LABS: Anion Gap 10 mEq/L (7-15); Calcium* 9.6 mg/dL (8.4-10.6); Carbon Dioxide* 23 mmol/L (20-32); Glucose* 108 mg/dL (60-115)
[2025-03-01 09:35] LABS: Lymphocytes Absolute Auto 1.20 K/uL (0.90-2.90); Slide Review Reflex No
--- NOTE | 2025-03-01 09:52 | ED.GENADULT ---
HPI - General Adult General Date Seen: 03/01/25 Chief complaint: Sore Throat Stated complaint: throat pain Time Seen by Provider: 03/01/25 08:56 Source: patient Mode of arrival: ambulatory Limitations: no limitations History of Present Illness HPI narrative: Patient is a 34-year-old female presenting to emergency department due to the sensation of something pushing against her throat. She states yesterday she started noticing the symptoms and had no thing occur prior to it. States that when she swallows she feels like something is pushing against her throat. The sensation is from the anterior aspect of her neck she states. Was concerned her thyroid because she had some hypothyroidism during . States she is able swallow fine but just has the odd sensation after swallowing. Denies any shortness of breath. Denies any throat pain. Denies fevers, chills, chest pain. Symptoms are mostly in the lower neck. Denies having symptoms like this before. Related Data Home Medications ?Medication ?Instructions ?Recorded ?Confirmed No Known Home Medications 02/12/25 03/01/25 Allergies Allergy/AdvReac Type Severity Reaction Status Date / Time No Known Allergies Allergy Verified 03/01/25 08:48 Review of Systems Narrative: Pertinent systems reviewed and were negative unless stated in HPI PFSH PFS Medical History Acute bilateral otitis media ?H66.93 - Otitis media, unspecified, bilateral (ICD-10) Ceruminosis ?H61.20 - Impacted cerumen, unspecified ear (ICD-10) Hypothyroidism ?E03.9 - Hypothyroidism, unspecified (ICD-10) History of blood transfusion ?Z92.89 - Personal history of other medical treatment (ICD-10) Anxiety ?F41.9 - Anxiety disorder, unspecified (ICD-10) Surgical History Status post primary low transverse section ?Z98.891 - History of uterine scar from previous surgery (ICD-10) History of surgical removal of pilonidal cyst ?Z98.890 - Other specified postprocedural states (ICD-10) Family History Aunt Breast cancer Thyroid disease Brain cancer FH: mental illness Paternal Grandfather Thyroid disease Mother No problems noted. 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 No tob / ETOH / drug use What is your current living situation?: I presently have a place to live In the past 12 months, utilities in danger of being shut off: no In past 12 months, lack of transportation kept you from medical appts, meetings, work, or getting things needed for daily living: no In the past 12 mos, have been you worried that your food would run out before you had money to buy more?: never true In the past 12 mos, the food you bought just didn't last and you didn't have money to buy more?: never true Smoking Status: Never smoker How often do you have a drink containing alcohol: never How often do you have six or more drinks on one occasion: Never AUDIT-C Alcohol total score: 0 Non-prescribed substance use: denies use How often does anyone, including family, friends and others, physically hurt you: never How often does anyone, including family, friends and others, insult or talk down to you: never How often does anyone, including family, friends and others, threaten you with harm: never How often does anyone, including family, friends and others, scream or curse at you: never Exam Narrative: Exam Narrative: Const: Well-nourished, Well-developed, in no distress Eyes: PERRL, no conjunctival injection, and symmetrical lids HENT: Atraumatic external nose and ears. Moist mucous membranes. Neck: Symmetric, trachea midline, No thyromegaly. CVS: RRR, No murmurs or gallops. Peripheral pulses 2+ and equal in all extremities RESP: Unlabored respiratory effort. Clear to auscultation bilaterally. MSK:Extremities w/o deformity, Normal Active ROM Skin: Warm, Dry. No rashes or lesions. Neuro: Normal Muscle tone, No focal neurological deficits. Psych: Awake, Alert, & Oriented x3. Appropriate mood and affect. Const: Vital Signs, click to edit/add: Vital Signs - 24 hr 03/01/25 08:41 03/01/25 09:00 03/01/25 09:53 Temperature 97.5 F L Pulse Rate [Pulse Oximeter] 95 96 90 Respiratory Rate 16 16 Blood Pressure [Ri t Upper Arm] 130/83 125/74 Pulse Oximetry 99 100 100 Oxygen Delivery Me thod Room Air Room Air Room Air Course Vital Signs Vital signs: Initial Vital Signs Temperature 97.5 F L 03/01/25 08:41 Temperature Source Temporal Artery Scan 03/01/25 08:41 Pulse Rate 95 03/01/25 08:41 Respiratory Rate 16 03/01/25 08:41 Blood Pressure 130/83 03/01/25 08:41 Blood Pressure Mean 98 03/01/25 08:41 Blood Pressure Position Sitting 03/01/25 08:41 Pulse Oximetry 99 03/01/25 08:41 Oxygen Delivery Method Room Air 03/01/25 08:41 Vital Signs Temperature 97.5 F L 03/01/25 08:41 Pulse Rate 95 03/01/25 08:41 Respiratory Rate 16 03/01/25 08:41 Blood Pressure 130/83 03/01/25 08:41 Pulse Oximetry 99 03/01/25 08:41 Oxygen Delivery Method Room Air 03/01/25 08:41 Temperature 97.5 F L 03/01/25 08:41 Pulse Rate 90 03/01/25 09:53 Respiratory Rate 16 03/01/25 09:53 Blood Pressure 125/74 03/01/25 09:53 Pulse Oximetry 100 03/01/25 09:53 Oxygen Delivery Method Room Air 03/01/25 09:53 Medical Decision Making MDM Narrative Medical decision making narrative: Patient is a 34-year-old female presenting to the emergency department for discomfort after swallowing. She does not take any medications currently so this is not seem to be pill esophagitis. No signs of infections or concerns about deep neck space infections. The thyroid felt normal seems unlikely to be pressing up against her trachea esophagus. I spoke to her and she does want to proceed with CT scan to see if anything is going wrong. Did order some basic labs. Lab work shows no concerning abnormalities. CT scan shows an aberrant right subclavian artery wrapping behind the esophagus. Considering she sometimes has symptoms in her back to from this this very well could be causing her difficulty swallowing. It is odd that it took 35 years for the symptoms to start but overall I do believe she is safe for discharge. Did speak to her about possibly getting a barium swallow with her PCP. She is agreeable to this plan. Lab Data Labs: Lab Results 03/01/25 Range/Units 09:00 WBC 9.35 (4.50-11.00) K/uL RBC 4.52 (4.00-5.20) m/uL Hgb 13.8 (12.0-16.0) gm/dL Hct 41.6 (33.0-51.0) % MCV 92 (80-100) fL MCH 31 (26-34) pg MCHC 33 (32-36) gm/dL RDW Coeff of Josue 11.8 (11.5-15.5) % Plt Count 270 (140-440) K/uL Neut % (Auto) 80.6 H (42.0-72.0) % Lymph % (Auto) 12.7 L (20-44) % Josephine % (Auto) 5.2 (0.0-11.0) % Eos % (Auto) 0.9 (0.0-7.0) % Baso % (Auto) 0.5 (0.0-3.0) % Neut # (Auto) 7.50 H (1.7-7.0) K/uL Lymph # (Auto) 1.20 (0.90-2.90) K/uL Josephine # (Auto) 0.50 (0.00-0.90) K/UL Eos # (Auto) 0.08 (0.00-0.50) K/uL Baso # (Auto) 0.05 (0.00-0.30) K/uL Abs Immat Gran (auto) 0.01 (0.00-0.30) K/uL Imm/Tot Granulo (auto) 0.1 % Sodium 138 (135-149) mmol/L Potassium 3.7 (3.6-5.1) mmol/L Chloride 105 (96-114) mmol/L Carbon Dioxide 23 (20-32) mmol/L Anion Gap 10 (7-15) mEq/L BUN 10 (5-24) mg/dL Creatinine 0.8 (0.5-1.5) mg/dL Estimated Creat Clear 95.45 Estimated GFR 98 ml/min Glucose 108 (60-115) mg/dL Calcium 9.6 (8.4-10.6) mg/dL TSH 2.220 (0.270-4.200) uIU/mL Imaging Data CT scan neck: Attestation: I have reviewed the pertinent imaging results. Radiologist's impression: Lungs clear. No acute findings. Dictated by Li Narayanan MD @ 03/01/2025 9:43:15 AM Discharge Plan Discharge Clinical Impression: Dysphagia Qualifiers: Dysphagia type: unspecified Qualified Code(s): R13.10 - Dysphagia, unspecified Patient Disposition: Home, Self-Care Condition: Stable Instructions: Barium Swallow (DC) Additional Instructions: You have what is called an aberant right subclavian artery. This is a congenital problem which means your born with it. Most people have no symptoms from it but it does wrap behind your esophagus at could be causing your odd sensation with swallowing. I do recommend following your PCP if the symptoms persist to possibly get a barium swallow. I also recommend that if he ever have any neck procedures to inform your provider of this before they do surgery Prescriptions: No Action No Known Home Medications Follow Up/Referrals: Provider,Not a Local [Primary Care Provider, Family Practice] Stand Alone Forms: [employer] Info Instructions
[2025-03-01 09:53] VITALS: BP 125/74; PULSE 90; RESP 16; O2SAT 100
[2025-03-01 09:57] LABS: TSH With Reflex to FT4* 2.220 uIU/mL (0.270-4.200)
== END 2025-03-01 10:58 | disposition home or self-care (01) ==
PROVIDERS: Emergency Provider Student in an Organized Health Care Education/Training Program
DX: R13.10 Dysphagia, unspecified (principal)
CPT/HCPCS: 36415; 70491; 80048; 84443; 85025; 99284; 99285; Q9967

== ENCOUNTER 2025-04-18 15:36 | Outpatient (CLI) | payer OTHER, SELFPAY ==
[2025-04-20 19:35] LABS: HPV Source Cervix
[2025-04-23 08:04] LABS: Pap Test Digital Imaging Done
== END 2025-04-18 15:37 | disposition home or self-care (01) ==
PROVIDERS: PCP Family Medicine; Visit Provider Registered Nurse
DX: Z12.4 Encounter for screening for malignant neoplasm of cervix (principal); Z11.51 Encounter for screening for human papillomavirus (HPV)
CPT/HCPCS: 87624; 87625; 88141; 88142; 88175